=== PATIENT | male | born 1985 | race Caucasian/White ===

== ENCOUNTER 2016-12-09 13:07 | Emergency (ER) | payer MEDICAID ==
[~2016-12-09] VITALS: Ht 177.8 cm; Wt 55.0 kg
[~2016-12-09 13:07] MED LIST: BUPR1FIL5 PO; DIAZ5TAB PO
[2016-12-09] MEDS ORDERED: LORazepam 2 MG/ML, 1ML IVPush ONE (13:30)
[2016-12-09] MEDS ORDERED: SODIUM CHLORIDE FLUSH 10ML SYR IVF ONE (13:30)
[2016-12-09] MEDS ORDERED: ACETAMINOPHEN 500 MG TABLET ONE (13:32)
[2016-12-09] MEDS ORDERED: LORazepam 2 MG/ML, 1ML ONE (13:33)
[2016-12-09 13:58] LABS: BLOOD UREA NITROGEN 8 mg/dL (7-18)
[2016-12-09] MEDS ORDERED: ACETAMINOPHEN 500 MG TABLET PO ONE (14:00)
[2016-12-09 14:13] LABS: ACETAMINOPHEN < 2 mcg/mL (10-30); IS PT STATUS REG ER OR PRE ER? YES
[2016-12-09] MEDS ORDERED: LIDOCAINE 1%, 20ML INFIL ONE (14:30)
[2016-12-09] MEDS ORDERED: LIDOCAINE 1%, 20ML ONE (14:33)
[2016-12-09 15:18] VITALS: BP 128/79
== END 2016-12-09 15:53 | disposition home or self-care (01) ==
LOC: ED 15:52
DX: R56.9 Unspecified convulsions (principal)
CPT/HCPCS: 36415; 70450; 71010; 80048; 80307; 80329; 82040; 83605; 84484; 85025; 85610; 93005; 96374; 99285; J2060; G0480